=== PATIENT | female | born 2000 | race Two or more races ===

== ENCOUNTER 2022-04-09 10:57 | Emergency (ER) | payer OTHER ==
[~2022-04-09] VITALS: Ht 160 cm; Wt 49.9 kg
== END 2022-04-09 15:45 | disposition home or self-care (01) ==
LOC: ER 10:57
DX: T07.XXXA Unspecified multiple injuries, initial encounter (principal); V49.9XXA Car occupant (driver) (passenger) injured in unspecified traffic accident, initial encounter; Y93.9 Activity, unspecified; Y92.413 State road as the place of occurrence of the external cause; Y99.9 Unspecified external cause status; M62.838 Other muscle spasm; Z88.6 Allergy status to analgesic agent

== ENCOUNTER → 2024-03-19 | Emergency (ER) | payer OTHER ==
[~2024-03-19] VITALS: Ht 160 cm; Wt 49.0 kg
[2024-03-20 02:06] LABS: CALCIUM 9.4 mg/dL (8.5-10.1); CREATININE SERUM 0.65 mg/dL (0.55-1.02); GFR 111.98; POTASSIUM 4.16 mEq/L (3.5-5.1)
== END | disposition home or self-care (01) ==
LOC: ER 19:53
PROVIDERS: General Practice
DX: S00.93XA Contusion of unspecified part of head, initial encounter (principal); W10.9XXA Fall (on) (from) unspecified stairs and steps, initial encounter; Y93.9 Activity, unspecified; Y92.019 Unspecified place in single-family (private) house as the place of occurrence of the external cause; Y99.9 Unspecified external cause status